=== PATIENT | female | born 1960 | race Two or more races ===

== ENCOUNTER → 2016-07-29 | Outpatient (CLI) | payer MEDICAID ==
[~2016-07-29] MED LIST: IOPAMIDOL (ISOVUE-300) 100 ML BTL IV ONE
[2016-07-29 11:28] LABS: CREATININE 0.5 mg/dL (0.6-1.0); GLOMERULAR FILTRATION RATE > 60
== END ==
LOC: FIMAGING 10:42
PROVIDERS: ATTEND Family Medicine
DX: R10.12 Left upper quadrant pain (principal)
CPT/HCPCS: Q9967

== ENCOUNTER → 2016-08-14 | Outpatient (CLI) | payer MEDICAID | LOC: FIMAGING 11:00 | PROVIDERS: ATTEND Family Medicine | DX: M79.601 Pain in right arm (principal); M79.89 Other specified soft tissue disorders ==

== ENCOUNTER 2017-04-05 14:11 | Emergency (ER) | payer MEDICAID ==
[2017-04-05 14:19] VITALS: RESP 16
--- NOTE | 2017-04-05 14:28 | EDPHY ---
H & P Time Seen by Provider: 04/05/17 14:22 HPI/ROS: CHIEF COMPLAINT: Left flank pain HISTORY OF PRESENT ILLNESS: The patient is a 57-year-old female with history of diabetes presenting with left flank pain. The patient developed left sided flank pain two weeks ago. Over the past two days her pain has become severe in nature. Her pain is worse with movement and radiates into her left groin. She states " it feels like a punching" sensation. She has associated dysuria and urinary frequency. She reports nausea, no emesis. She took two tablets of oxycodone last night and this morning and found no relief. REVIEW OF SYSTEMS: A comprehensive 10 point review of systems is otherwise negative aside from elements mentioned in the history of present illness. Past Medical/Surgical History: Diabetes, Hypertension Social History: . Nonsmoker. No alcohol use. No drug use. Smoking Status: Former smoker Physical Exam: General Appearance: Appears in pain, tearful Eyes: Pupils equal and round, no conjunctival pallor or injection ENT, Mouth: Mucous membranes moist Neck: Normal inspection Respiratory: Lungs are clear to auscultation Cardiovascular: Regular rate and rhythm Gastrointestinal: Abdomen is soft, LUQ tenderness Back: Negative straight leg raise. Tenderness to light palpation over left flank area Neurological: A&O, nonfocal, normal gait Skin: Warm and dry, no rash Extremities: Nontender, no pedal edema Psychiatric: Mood and affect normal Constitutional: Initial Vital Signs Temperature (C) 36.4 C 04/05/17 14:15 Heart Rate 63 04/05/17 14:15 Respiratory Rate 16 04/05/17 14:15 Blood Pressure 150/64 H 04/05/17 14:15 O2 Sat (%) 96 04/05/17 14:15 O2 Delivery Mode Room Air Allergies/Adverse Reactions: No Known Allergies Allergy (Verified 07/18/15 20:46) Home Medications: Medication Instructions Recorded Losartan Potassium [Cozaar] 100 mg PO DAILY 03/15/15 Metformin HCl [Metformin 1000 mg] 1,000 mg PO BID 03/15/15 Acetaminophen [Tylenol 325mg (*)] 650 mg PO Q4 PRN #0 tab 07/19/15 Aspirin EC [Aspirin EC 81 mg (*)] 81 mg PO DAILY #0 tab 07/19/15 Insulin Aspart [novoLOG] 16 unit SQ BID 07/19/15 Insulin Detemir [Levemir Flextouch] 54 unit SQ BID 07/19/15 Metoprolol Tartrate [Lopressor 50 50 mg PO BID 07/19/15 mg (*)] Cefdinir [Omnicef (*)] 300 mg PO BID #20 cap 04/05/17 oxyCODONE/APAP 5/325 [Percocet 1 - 2 tab PO Q4 PRN #15 tab 04/05/17 5/325 (*)] Medical Decision Making - Diagnostics Imaging Results: CT abd/pelvis read by the radiologist: unremarkable, no ureteral stone or hydronephrosis. Imaging: Discussed imaging studies w/ slumber room attendant Radiologist ED Course/Re-evaluation: Patient presents with severe left flank pain radiating to left flank. The patient appears in pain, she has difficulty moving secondary to pain. Unclear if this is secondary to musculoskeletal pain, kidney stone or pyelonephritis. IV was established, the patient received Benadryl, Reglan and Fluids. She was given Ketamine nasally. I ordered CT abdomen/pelvis to look for stone or other cause of pain. Lab work including BMP, CBC, and UA are pending. Results discussed with the patient. UTI and likely musculoskeletal etiology of pain. She feels much better after ketamine especially, though the pain is starting to return. Toradol 15 mg IV given. Lab work is unremarkable, WBC is normal. Urinalysis is positive for blood and leukocyte esterase. Plan to treat UTI with Omnicef. CT abdomen/pelvis is negative for stone or other acute findings. Patient was instructed to take Ibuprofen for pain and oxycodone for severe pain. Differential Diagnosis: Differential diagnosis includes though it is not limited to appendicitis, cholecystitis, diverticulitis, pyelonephritis, bowel perforation, small bowel obstruction. - Data Points Laboratory Results: Laboratory Results 04/05/17 14:41 04/05/17 14:41 Microbiology Results: MICROBIOLOGY 04/05/17 15:30 Urine,Clean Catch Urine Culture - Preliminary Gram Neg Rods 2 Or More Types Three [place] Types Medications Given: Discontinued Medications Diphenhydramine HCl (Benadryl Injection) 25 mg IVP EDNOW ONE Stop: 04/05/17 14:33 Last Admin: 04/05/17 15:02 Dose: 25 mg Sodium Chloride (Ns) 1,000 mls @ 0 mls/hr IV EDNOW ONE; Wide Open PRN Reason: Protocol Stop: 04/05/17 14:32 Last Admin: 04/05/17 15:02 Dose: 1,000 mls Ketamine HCl (Ketamine) 50 mg NASAL EDNOW ONE Stop: 04/05/17 14:33 Last Admin: 04/05/17 15:02 Dose: 50 mg Ketorolac Tromethamine (Toradol) 15 mg IVP EDNOW ONE Stop: 04/05/17 16:59 Last Admin: 04/05/17 17:18 Dose: 15 mg Metoclopramide HCl (Reglan Injection) 10 mg IVP EDNOW ONE Stop: 04/05/17 14:33 Last Admin: 04/05/17 15:02 Dose: 10 mg Departure - Departure Disposition: Home, Routine, Self-Care Clinical Impression: Urinary tract infection Qualifiers: Urinary tract infection type: acute cystitis Hematuria presence: without hematuria Qualified Code(s): N30.00 - Acute cystitis without hematuria Condition: Good Instructions: Urinary Tract Infection in Women (ED) Additional Instructions: I recommend 600mg Ibuprofen every 6 to 8 hours as needed for pain. Take Oxycodone as directed for severe pain. Take the full course of Omnicef. Drink plenty of fluids. Referrals: William Starks MD [Primary Care Provider] - 2-3 days without fail Prescriptions: Cefdinir [Omnicef (*)] 300 mg PO BID #20 cap oxyCODONE/APAP 5/325 [Percocet 5/325 (*)] 1 - 2 tab PO Q4 PRN #15 tab PRN Reason: pain Report Scribed for: Mamie Haas Report Scribed by: Alix West Date of Report: 04/05/17 Time of Report: 14:24 Physician Review and Approval Statement: 04/05/17 14:24 Portions of this note were transcribed by a medical referral coordinator. I personally performed the history, physical exam, and medical decision-making; and confirmed the accuracy of the information in the transcribed note.
[2017-04-05] MEDS ORDERED: NS 1,000 ML IV ONE (14:31)
[2017-04-05] MEDS ORDERED: METOCLOPRAMIDE 10 MG/2 ML VIAL IVP ONE (14:32)
[2017-04-05] MEDS ORDERED: KETAMINE 500 MG/10 ML VIAL NASAL ONE (14:32)
[2017-04-05 15:01] LABS: % IMMATURE GRANULYOCYTES 0.7 % (0.0-1.1); ABSOLUTE IMMATURE GRANULOCYTES 0.04 10^3/uL (0.00-0.10); ADD DIFF? NO; ADD MORPH? NO; ADD SCAN? NO; ATYPICAL LYMPHOCYTE FLAG 0 (0-99); FRAGMENT RBC FLAG 0 (0-99); HEMATOCRIT 37.7 % (38.0-47.0); HEMOGLOBIN 13.2 g/dL (12.6-16.3); LEFT SHIFT FLG 0 (0-99); LIPEMIA HEMOLYSIS FLAG 90 (0-99); MEAN CELL HEMOGLOBIN 30.4 pg (27.9-34.1); MEAN CELL VOLUME 86.9 fL (81.5-99.8); MEAN PLATELET VOLUME 10.2 fL (8.7-11.7); PLATELET CLUMPS FLAG 0 (0-99); PLATELET COUNT 187 10^3/uL (150-400); RED BLOOD CELL COUNT 4.34 10^6/uL (4.18-5.33); RED CELL DISTRIBUTION WIDTH 13.2 % (11.5-15.2)
[2017-04-05 15:32] LABS: ANION GAP 14 mEq/L (8-16); CALCIUM 8.7 mg/dL (8.5-10.4); CARBON DIOXIDE 21 mEq/l (22-31); CHLORIDE 103 mEq/L (97-110); CREATININE 0.6 mg/dL (0.6-1.0); GLOMERULAR FILTRATION RATE > 60; GLUCOSE 128 mg/dL (70-100); POTASSIUM 4.1 mEq/L (3.5-5.2); SODIUM 138 mEq/L (134-144)
[2017-04-05 15:38] VITALS: PULSE 65
[2017-04-05 16:01] LABS: COLOR YELLOW; LEUKOCYTE ESTERASE,URINE 2+ (NEGATIVE); NITRITE,URINE NEGATIVE (NEGATIVE)
[2017-04-05 16:11] LABS: BACTERIA 1+ /hpf (NONE SEEN); MUCUS TRACE /lpf (NONE-1+)
[2017-04-05] MEDS ORDERED: KETOROLAC 15 MG/1 ML SDV IVP ONE (16:58)
[2017-04-05 17:24] VITALS: BP 118/78; TEMP 96.8; O2SAT 94
== END 2017-04-05 17:38 | disposition home or self-care (01) ==
DX: N30.00 Acute cystitis without hematuria (principal); B96.89 Other specified bacterial agents as the cause of diseases classified elsewhere; E11.9 Type 2 diabetes mellitus without complications; I10 Essential (primary) hypertension; E86.9 Volume depletion, unspecified; Z87.891 Personal history of nicotine dependence; Z79.4 Long term (current) use of insulin; Z79.84 Long term (current) use of oral hypoglycemic drugs
CPT/HCPCS: 96374; J1200; J1885; J2765

== ENCOUNTER 2017-06-10 08:29 | Emergency (ER) | payer MEDICAID ==
[2017-06-10 08:34] VITALS: O2SAT 94
--- NOTE | 2017-06-10 08:37 | EDPHY ---
H & P Time Seen by Provider: 06/10/17 08:36 HPI/ROS: CHIEF COMPLAINT: Cough and body aches HISTORY OF PRESENT ILLNESS: Patient was seen 3 weeks ago with similar symptoms by her primary care provider and diagnosed with bronchitis, started on a bronchodilator inhaler and cough medication and felt better. She presents with 2 days now of recurrent symptoms with cough body aches headache and increasing the frequency. REVIEW OF SYSTEMS: Eye: no change in vision ENT: Head congestion and runny nose Cardiac: Chest pain only with coughing Pulmonary: Coughing nonproductive with mild shortness of breath Abdomen: no vomiting, diarrhea, abdominal pain Musculoskeletal: Diffuse myalgias Skin: no rash Neuro: no headache Constitutional: no fever : Increasing urinary frequency without dysuria or hematuria A comprehensive 10 point review of systems is otherwise negative aside from elements mentioned in the history of present illness. PAST MEDICAL HISTORY: Includes diabetes, hypertension, cholecystectomy, left leg fracture, right knee arthritis. Social history: Not smoking currently General Appearance: Alert and conversant, cooperative. Eyes: No scleral icterus. ENT, Mouth: Normal mucous membranes. Normal pharynx with no trismus or erythema or exudate. Respiratory: Normal respiratory effort, very slight end-expiratory wheeze, no focal lung sounds. Cardiovascular: Regular rate and rhythm. Gastrointestinal: Abdomen is soft and non tender. Neurological: Alert, face symmetric, normal motor and sensory in extremities. Skin: Warm and dry, no rashes. Musculoskeletal: No peripheral edema. No calf tenderness. Psychiatric: Not agitated. Emergency Department course/MDM: Urinalysis, chest x-ray, fingerstick glucose. Influenza testing as she is diabetic and would qualify for Tamiflu if positive. 939: Influenza A positive. Will treat with Tamiflu given 2 days of current symptoms and history of diabetes making her higher risk. Chest x-ray negative for pneumonia. Initial oxygen saturation at triage was 94% on room air. Smoking Status: Former smoker Constitutional: Initial Vital Signs Temperature (C) 37 C 06/10/17 08:30 Heart Rate 79 06/10/17 08:30 Respiratory Rate 20 06/10/17 08:30 Blood Pressure 158/80 H 06/10/17 08:30 O2 Sat (%) 94 06/10/17 08:30 O2 Delivery Mode Room Air Allergies/Adverse Reactions: No Known Allergies Allergy (Verified 06/10/17 08:29) Home Medications: Medication Instructions Recorded Losartan Potassium [Cozaar] 100 mg PO DAILY 03/15/15 Metformin HCl [Metformin 1000 mg] 1,000 mg PO BID 03/15/15 Acetaminophen [Tylenol 325mg (*)] 650 mg PO Q4 PRN #0 tab 07/19/15 Aspirin EC [Aspirin EC 81 mg (*)] 81 mg PO DAILY #0 tab 07/19/15 Insulin Aspart [novoLOG] 16 unit SQ BID 07/19/15 Insulin Detemir [Levemir Flextouch] 54 unit SQ BID 07/19/15 Metoprolol Tartrate [Lopressor 50 50 mg PO BID 07/19/15 mg (*)] Ipratropium [Atrovent Hfa (*)] 12.9 gm IH 06/10/17 Oseltamivir Phosphate [Tamiflu] 75 mg PO BID #0 cap 06/10/17 Medical Decision Making - Diagnostics Imaging Results: Imaging Impressions Chest X-Ray 06/10/17 08:45 Impression: 1. No active cardiopulmonary disease seen. - Data Points Laboratory Results: 06/10/17 06/10/17 08:45 08:41 POC Glucose 185 mg/dL H mg/dL (70-100) Nasal Influenza A PCR FLU A DETECTED H (NEGATIVE) Nasal Influenza B PCR NEGATIVE FOR FLU B (NEGATIVE) Medications Given: Discontinued Medications Albuterol/Ipratropium (Duoneb) 3 ml IH EDNOW ONE Stop: 06/10/17 08:46 Last Admin: 06/10/17 08:51 Dose: 3 ml Point of Care Test Results: 06/10/17 08:41 POC Glucose 185 H Departure - Departure Disposition: Home, Routine, Self-Care Clinical Impression: Influenza A Condition: Good Instructions: Influenza (ED) Additional Instructions: Continue to use your inhaler as prescribed. Return for worsening cough or shortness of breathing. You are positive for influenza. Your being treated with anti flu medication, Tamiflu, because you have diabetes. Referrals: William Starks MD [Primary Care Provider] - As per Instructions Prescriptions: Oseltamivir Phosphate [Tamiflu] 75 mg PO BID #0 cap
[2017-06-10] MEDS ORDERED: IPRATROPIUM/ALBUTEROL 3 ML DEYVIAL IH ONE (08:45)
[2017-06-10] MEDS ORDERED: OSELTAMIVIR PHOSPHATE 75 MG CAP PO ONE (09:42)
[2017-06-10 10:14] VITALS: BP 153/87; PULSE 84; RESP 18; TEMP 98.2
== END 2017-06-10 10:14 | disposition home or self-care (01) ==
DX: J10.1 Influenza due to other identified influenza virus with other respiratory manifestations (principal); I10 Essential (primary) hypertension; E11.9 Type 2 diabetes mellitus without complications; Z79.4 Long term (current) use of insulin; Z79.82 Long term (current) use of aspirin; Z87.891 Personal history of nicotine dependence

== ENCOUNTER 2017-09-04 10:49 | Inpatient (IN) | payer MEDICAID ==
[2017-09-04] MEDS ORDERED: ONDANSETRON 4 MG/2 ML VIAL IVP ONE (11:28)
[2017-09-04] MEDS ORDERED: NS 1,000 ML IV ONE (11:28)
[2017-09-04] MEDS ORDERED: PROMETHAZINE HCL 25 MG/ML INJ IVP ONE (11:28)
--- NOTE | 2017-09-04 11:30 | EDPHY ---
General Time Seen by Provider: 09/04/17 11:23 Narrative: CHIEF COMPLAINT: Nausea, vomiting, diarrhea HISTORY OF PRESENT ILLNESS: Patient presents of nausea vomiting diarrhea that started on Friday. She was in [place] on Friday when she ate a meal at a restaurant. She says that she felt the meal was "not right." Following day Friday, she developed diarrhea. This is a watery foul-smelling diarrhea. Described as 10 episodes per day. No bright red blood. No dark tarry stools. She then developed vomiting later that same day on Friday. Six or so episodes today. Any time she eats or drinks a thinks she vomits. She cannot tolerate liquids at this point. She also has abdominal cramping pain. No fever. No chest pain shortness of breath. No lower extremity complaints. No Urinary complaints. She has not yet been evaluated. REVIEW OF SYSTEMS: Ten systems reviewed and are negative unless otherwise noted in the HPI PRIMARY CARE PHYSICIAN: Dr. William Starks PAST MEDICAL HISTORY: Hypertension, diabetes, arthritis PAST SURGICAL HISTORY: Cholecystectomy, orthopedic surgeries SOCIAL HISTORY: Nonsmoker. Lives and works here locally. FAMILY HISTORY: Noncontributory EXAMINATION General Appearance: Alert, no distress Head: normocephalic, atraumatic Eyes: Pupils equal and round, no conjunctival pallor or injection ENT, Mouth: Mucous membranes mildly dry. Airway widely patent Neck: Normal inspection, supple, non-tender Respiratory: Lungs are clear to auscultation Cardiovascular: Regular rate and rhythm no murmur Gastrointestinal: obese Abdomen is soft and nondistended. No tympany rigidity. Mild tenderness in all quadrants. Bowel sounds are present in all quadrants. No CVA tenderness. Back: non-tender, no bony abnormalities Neurological: GCS 15. A&O, nonfocal, normal gait Skin: Warm and dry, no rash no petechiae or purpura Extremities: Nontender, no pedal edema Psychiatric: Mood and affect normal DIFFERENTIAL DIAGNOSES: Including but not limited to enteritis, gastroenteritis, gastritis, dysentery, infectious diarrhea, traveler's diarrhea, colitis, diverticulitis MDM: 11:30 a.m. Nausea, vomiting and diarrhea since Friday. Patient did travel to [place] over the weekend. She has abdominal pain but benign abdominal examination at this time. Her vital signs are within normal limits. She is in no acute distress. I have ordered IV fluid and nausea medication. Laboratory studies are pending. 1:09 p.m. Notified by laboratory and charge nurse that the potassium is critically low at 2.5. I have reviewed the lab myself and she also has a mild hypoalbuminemia and hypocalcemia. Minimal transaminitis. No abnormality of her T bili or alkaline phosphatase. She is also status post cholecystectomy. Suspect that she may have a hepatitis a viral gastroenteritis. I have re-evaluated the patient. She is receiving IV fluid resuscitation but still not tolerating p.o.. I have ordered p.o. Dose of potassium for her to attempt to take. I have also ordered peripheral IV dose. She will require admission to the hospital for this. Her abdominal pain persist but abdominal exam is benign. No leukocytosis. No fever. Vital signs stable. 1:15 p.m. Case discussed with Almaz Tanner, hospitalist. Patient will be admitted to Dr. Tayal Box. She is requesting a PCU bed. At this time I have ordered the bed, an EKG and cardiac monitoring of the patient. I re-evaluated the patient she is awake alert no acute distress. GI pathogen panel is pending 1:55 p.m. GI pathogen panel is positive for salmonella. I have notified Dr. Box. The patient remains stable in no acute distress received IV fluid. SUPERVISION: Patient was independently examined, but I discussed the case with my secondary supervising physician Dr. Xiong - History Smoking Status: Former smoker - Objective Vital Signs: Initial Vital Signs Temperature (C) 97.3 F 09/04/17 10:53 Heart Rate 84 09/04/17 10:53 Respiratory Rate 16 09/04/17 10:53 Blood Pressure 181/88 H 09/04/17 10:53 O2 Sat (%) 95 09/04/17 10:53 O2 Delivery Mode Room Air Allergies/Adverse Reactions: No Known Allergies Allergy (Verified 06/10/17 08:29) Home Medications: Medication Instructions Recorded Losartan Potassium [Cozaar] 100 mg PO DAILY 03/15/15 Metformin HCl [Metformin 1000 mg] 1,000 mg PO BIDMEAL 03/15/15 Metoprolol Tartrate [Lopressor 50 50 mg PO BID 07/19/15 mg (*)] Albuterol [Proventil Inhaler HFA 1 - 2 puffs IH DAILY PRN 09/04/17 (*)] Gabapentin [Neurontin 300 MG (*)] 300 mg PO TID 09/04/17 Ibuprofen [Motrin (*)] 800 mg PO TID PRN 09/04/17 Insulin Lispro [Humalog] 0 units SQ TID 09/04/17 Laboratory Results: Laboratory Results 09/04/17 12:39 09/04/17 12:39 09/04/17 09/04/17 09/04/17 12:39 12:39 12:39 WBC 4.75 10^3/uL 10^3/uL (3.80-9.50) RBC 4.57 10^6/uL 10^6/uL (4.18-5.33) Hgb 13.4 g/dL g/dL (12.6-16.3) Hct 38.8 % % (38.0-47.0) MCV 84.9 fL fL (81.5-99.8) MCH 29.3 pg pg (27.9-34.1) MCHC 34.5 g/dL g/dL (32.4-36.7) RDW 13.3 % % (11.5-15.2) Plt Count 150 10^3/uL 10^3/uL (150-400) MPV 10.1 fL fL (8.7-11.7) Neut % (Auto) 56.7 % % (39.3-74.2) Lymph % (Auto) 28.0 % % (15.0-45.0) Sac % (Auto) 13.5 % H % (4.5-13.0) Eos % (Auto) 0.6 % % (0.6-7.6) Baso % (Auto) 0.4 % % (0.3-1.7) Nucleat RBC Rel Count 0.0 % % (0.0-0.2) Absolute Neuts (auto) 2.69 10^3/uL 10^3/uL (1.70-6.50) Absolute Lymphs (auto) 1.33 10^3/uL 10^3/uL (1.00-3.00) Absolute Monos (auto) 0.64 10^3/uL 10^3/uL (0.30-0.80) Absolute Eos (auto) 0.03 10^3/uL 10^3/uL (0.03-0.40) Absolute Basos (auto) 0.02 10^3/uL 10^3/uL (0.02-0.10) Absolute Nucleated RBC 0.00 10^3/uL 10^3/uL (0-0.01) Immature Gran % 0.8 % % (0.0-1.1) Immature Gran # 0.04 10^3/uL 10^3/uL (0.00-0.10) Sodium 138 mEq/L mEq/L (135-145) Potassium 2.5 mEq/L L* mEq/L (3.5-5.2) Chloride 98 mEq/L mEq/L (97-110) Carbon Dioxide 28 mEq/l mEq/l (22-31) Anion Gap 12 mEq/L mEq/L (8-16) BUN 16 mg/dL mg/dL (7-23) Creatinine 0.9 mg/dL mg/dL (0.6-1.0) Estimated GFR > 60 Glucose 148 mg/dL H mg/dL (70-100) Calcium 7.9 mg/dL L mg/dL (8.5-10.4) Total Bilirubin 0.7 mg/dL mg/dL (0.1-1.4) Conjugated Bilirubin 0.3 mg/dL mg/dL (0.0-0.5) Unconjugated Bilirubin 0.4 mg/dL mg/dL (0.0-1.1) AST 51 IU/L H IU/L (14-46) ALT 59 IU/L H IU/L (9-52) Alkaline Phosphatase 92 IU/L IU/L (38-126) Total Protein 6.4 g/dL g/dL (6.3-8.2) Albumin 3.4 g/dL L g/dL (3.5-5.0) Lipase 259 IU/L IU/L (23-300) Hepatitis A IgM Ab NEGATIVE (NEGATIVE) Hep Bs Antigen NEGATIVE (NEGATIVE) Hep B Core IgM Ab NEGATIVE (NEGATIVE) Hepatitis C Antibody NEGATIVE (NEGATIVE) Microbiology Results: MICROBIOLOGY 09/04/17 11:55 Stool Gastrointestinal Tract Panel (PCR) - Final Salmonella Species Medications Given: Discontinued Medications Sodium Chloride (Ns) 1,000 mls @ 0 mls/hr IV EDNOW ONE; Wide Open PRN Reason: Protocol Stop: 09/04/17 11:29 Last Admin: 09/04/17 12:18 Dose: 1,000 mls Potassium Chloride 10 meq/ (Sodium Chloride) 100 mls @ 100 mls/hr IV Q1H MITUL Stop: 09/04/17 15:44 Last Admin: 09/04/17 14:25 Dose: 100 mls Morphine Sulfate (Morphine) 4 mg IVP EDNOW ONE Stop: 09/04/17 13:17 Last Admin: 09/04/17 13:32 Dose: 4 mg Ondansetron HCl (Zofran) 4 mg IVP EDNOW ONE Stop: 09/04/17 11:29 Last Admin: 09/04/17 12:18 Dose: 4 mg Potassium Chloride (Potassium Chloride Oral Liquid) 40 meq PO EDNOW ONE Stop: 09/04/17 13:10 Last Admin: 09/04/17 13:33 Dose: 40 meq Promethazine HCl (Phenergan) 12.5 mg IVP EDNOW ONE Stop: 09/04/17 11:29 Last Admin: 09/04/17 12:18 Dose: 12.5 mg Departure - Departure Disposition: [facility] Clinical Impression: Hypokalemia due to loss of potassium, Gastroenteritis Condition: Good
[2017-09-04 12:48] LABS: PLATELET COUNT 150 10^3/uL (150-400)
[2017-09-04] MEDS ORDERED: POTASSIUM CL 20 MEQ/15 ML UDCUP PO ONE (13:09)
[2017-09-04] MEDS ORDERED: POTASSIUM Cl (KCl) 100 ML IV ONE (13:09)
--- NOTE | 2017-09-04 13:47 | CPEKG ---
Heart Rate: 64 RR Interval: 938 P-R Interval: 168 QRSD Interval: 100 QT Interval: 432 QTC Interval: 446 P [place]: 37 QRS [place]: -20 T Wave [place]: 7 EKG Severity - ABNORMAL ECG - EKG Impression: SINUS RHYTHM EKG Impression: LEFT VENTRICULAR HYPERTROPHY Electronically Signed By: Griselda Pompa 06-Sep-2017 15:16:12
[2017-09-04 14:17] LABS: HEPATITIS B SURFACE ANTIGEN NEGATIVE (NEGATIVE)
[2017-09-04 14:22] LABS: HEPATITIS A ANTIBODY IGM (BCH) NEGATIVE (NEGATIVE); HEPATITIS B CORE AB IGM NEGATIVE (NEGATIVE)
[2017-09-04] MEDS: POTASSIUM Cl (KCl) 10 MEQ in NS 100 ML IV SCH ×2 (14:25→16:20)
[2017-09-04 14:34] LABS: HEPATITIS C ANTIBODY TOTAL NEGATIVE (NEGATIVE)
[2017-09-04] MEDS ORDERED: KETOROLAC 30 MG/1 ML SDV IVP PRN (16:51)
[2017-09-04] MEDS ORDERED: PROTOCOL POTASSIUM 1 DOSE MISC PRN (16:51)
[2017-09-04] MEDS ORDERED: traMADol 50 MG TAB PO PRN (16:51)
[2017-09-04] MEDS ORDERED: PROMETHAZINE HCL 25 MG/ML INJ IVP PRN (16:51)
[2017-09-04] MEDS ORDERED: ACETAMINOPHEN 325 MG TAB PO PRN (16:51)
[2017-09-04] MEDS ORDERED: HYDROmorphone HCL/NS 0.5 MG/ML SYR IVP PRN (16:51)
[2017-09-04] MEDS ORDERED: D50W 25 GM/50 ML VIAL IVP PRN (16:53)
--- NOTE | 2017-09-04 17:24 | GHP ---
[f rep st] HISTORY AND PHYSICAL DATE OF ADMISSION: 09/04/2017 CHIEF COMPLAINT: Diarrhea. HISTORY OF PRESENT ILLNESS: The patient is a 57-year-old female who presents with severe nausea, vom iting, and diarrhea. She was visiting [place] and ate some chitlins, which she bought from a food [place] on Friday. That evening she became extremely sick, having profuse diarrhea, which has now contin ued for the last 5 days. She is having greater than 10 stools per day. She has nausea and vomiting every time she tries to eat. There is no blood. She has severe abdominal cramping. She has had tac tile fevers, and at night she has drenching night sweats and rigors. She has had minimal p.o. intake . PAST MEDICAL HISTORY: 1. Diabetes type 2. 2. Morbid obesity. 3. Hypertension. 4. Fatty liver. PAST SURGICAL HISTORY: Cholecystectomy. MEDICATIONS: Please see computer for full detailed list. ALLERGIES: No known drug allergies. SOCIAL HISTORY: No smoking, no alcohol. She lives with her , although her is still [facility], and she had come home early because she had to work. She works at [employer]. REVIEW OF SYSTEMS: Complete review of systems obtained. Review of systems is negative on constituti onal, HEENT, GI, pulmonary, cardiovascular, , hematology, skin, musculoskeletal, endocrine and psyc h, except for positives as in HPI. FAMILY HISTORY: Reviewed, noncontributory to presenting complaint. PHYSICAL EXAMINATION: GENERAL: Well-developed, well-nourished female, in no acute distress. VITAL SIGNS: Temperature 37.2, pulse 66, blood pressure 147/78, satting 92% on room air. EYES: Normal co njunctivae. Pupils react to light. ENT: Normal ears, nose. Hearing intact. Normal teeth. Oropha rynx moist. NECK: Trachea midline. No thyromegaly. CHEST: Normal effort. LUNGS: Clear to auscu ltation bilaterally. CARDIOVASCULAR: Regular rhythm. No murmur. No lower extremity edema. ABDOME N: Soft, nontender. No hepatosplenomegaly. SKIN: Warm, dry, intact. No rash. MUSCULOSKELETAL: No cyanosis or clubbing. Strength 5/5 upper and lower extremities. NEUROLOGIC: Cranial nerves inta ct. Normal sensation to light touch. PSYCH: Alert and oriented x3. Normal mood and affect. Regina l judgment. Normal memory. LABORATORY DATA: White count 4.75, hematocrit 38.8, platelets 150. Sodium 138, potassium 2.5, chlor nichol 98, bicarb 28, BUN 16, creatinine 0.9, glucose 140, AST 51, ALT 59. UA shows 5-10 white blood ce lls. EKG viewed by me, my personal interpretation is normal sinus rhythm, diffuse T-wave flattening. GI PCR panel is positive for salmonella. ASSESSMENT/PLAN: 1. Salmonella gastroenteritis. Antibiotics are indicated, given based on criteria of severe illness requiring hospitalization, greater than 10 diarrhea stools per day, age greater than 50, and presume d immunocompromised state due to diabetes and morbid obesity. We will start her on IV Levaquin and p razia for a 7-day course. Given her severe rigors at home, we will check blood cultures prior to antib iotics. 2. Hypokalemia. This will be repleted per protocol. We will also check magnesium and phosphorus. 3. Diabetes type 2. Creatinine is okay so can continue metformin. Place her on insulin sliding sca le. 4. Hypertension. Continue metoprolol and Cozaar. 5. Morbid obesity. BMI 42, with fatty liver. CODE STATUS: Full. ADMISSION STATUS: We will admit to observation. Reevaluate tomorrow on ongoing need for hospitaliza tion. DVT PROPHYLAXIS: She is high risk. We will place on subcu Lovenox. /[id number]/MODL
[2017-09-04] MEDS: NS 1,000 ML IV SCH (17:55)
[2017-09-04] MEDS: INSULIN REGULAR HUMAN 100 UNIT/ML UNIT SC SCH ×2 (18:32→21:14)
[2017-09-04] MEDS: metFORMIN HCL 500 MG TAB PO SCH (18:33)
[2017-09-04] MEDS ORDERED: POTASSIUM CL 10 MEQ TAB PO ONE (20:06)
[2017-09-04] MEDS: METOPROLOL TARTRATE 50 MG TAB PO SCH (21:13)
[2017-09-04] MEDS: GABAPENTIN 300 MG CAP PO SCH (21:13)
[2017-09-04] MEDS: ONDANSETRON 4 MG/2 ML VIAL IVP PRN (22:08)
[2017-09-04] MEDS: oxyCODONE IR 5 MG TAB PO PRN (22:13)
[2017-09-05 04:16] LABS: PLATELET COUNT 163 10^3/uL (150-400)
[2017-09-05] MEDS ORDERED: POTASSIUM CL 10 MEQ TAB PO ONE (08:16)
[2017-09-05] MEDS: INSULIN REGULAR HUMAN 100 UNIT/ML UNIT SC SCH ×4 (08:37→21:55)
[2017-09-05] MEDS: ENOXAPARIN 40 MG/0.4 ML SYR SC SCH ×2 (09:19→22:02)
[2017-09-05] MEDS: LOSARTAN POTASSIUM 50 MG TAB PO SCH (09:19)
[2017-09-05] MEDS: metFORMIN HCL 500 MG TAB PO SCH ×2 (09:19→17:36)
[2017-09-05] MEDS: GABAPENTIN 300 MG CAP PO SCH ×3 (09:20→22:02)
[2017-09-05] MEDS: METOPROLOL TARTRATE 50 MG TAB PO SCH ×2 (09:20→22:02)
[2017-09-05] MEDS: ONDANSETRON 4 MG/2 ML VIAL IVP PRN ×2 (09:22→22:02)
[2017-09-05] MEDS: oxyCODONE IR 5 MG TAB PO PRN (13:26)
--- NOTE | 2017-09-05 14:08 | ASMTCASEMG ---
Living Arrangements What is your living Answers: With Spouse arrangement? Who do you live with? Type Of Residence What kind of residence do Answers: House you live in? Discharge Plan Comments Coordination Status Comments Notes: Pts case discussed in tx rounds. CM met w/ pt and son for dispo planning. PT is recommending HC. OT is recommending home independent. Pt does not have a preference on HC agency as long as it is covered by Medicaid. Referral made to [facility]. [facility] is able to accept. CM to follow. Plan: JANEL, RN and PT Date Signed: 09/05/2017 02:08 PM Electronically Signed By:BREANN Raya
--- NOTE | 2017-09-05 15:21 | HOSPPROG ---
Hospitalist Progress Note Assessment/Plan: * Salmonella gastroenteritis -IV Levaquin indicated based on severity of illness, age > 50, diabetic * Hypokalemia - improved * DM II -metformin * Obesity BMI 33 * HTN -metoprolol, cozaar Subjective: Still with multiple BM per day. Not taking PO Objective: Vital Signs Temp Pulse Resp BP Pulse Ox 36.9 C 74 22 H 139/77 H 83 L 09/05/17 11:13 09/05/17 11:13 09/05/17 11:13 09/05/17 11:13 09/05/17 11:57 Laboratory Results 09/05/17 03:44 09/05/17 03:44 09/04/17 09/05/17 09/06/17 05:59 05:59 05:59 Intake Total 2755 350 Balance 2755 350 - Physical Exam Constitutional: no apparent distress, appears nourished, not in pain Cardiovascular: regular rate and rhythym, no murmur, rub, or gallop Respiratory: no respiratory distress, no rales or rhonchi, clear to auscultation Gastrointestinal: normoactive bowel sounds, soft, non-tender abdomen, no palpable masses Skin: no rashes or abrasions, no fluctuance, no induration Neurologic: AAOx3, sensation intact bilaterally Psychiatric: interacting appropriately, not anxious, not encephalopathic, thought process linear ICD10 Worksheet Patient Problems: Problems Problem Status Onset Gastroenteritis Acute Hypokalemia due to loss of potassium Acute Hyperglycemia Acute Urinary tract infection Acute
--- NOTE | 2017-09-05 15:56 | PDMN ---
Medical Necessity Medical necessity: Change to IP, as of 09/05/17, per MD; los >2 mn for ongoing management of Salmonella gastroenteritis; pt having multiple BMs per day & is unable to tolerate PO; admit for further monitoring, IV Levaquin & IVFs; hx diabetes & HTN; per progress note & order 09/05/17
[2017-09-05] MEDS: NS 1,000 ML IV SCH (17:37)
[2017-09-06 05:13] LABS: PLATELET COUNT 162 10^3/uL (150-400)
[2017-09-06] MEDS: INSULIN REGULAR HUMAN 100 UNIT/ML UNIT SC SCH ×4 (07:30→22:24)
[2017-09-06] MEDS: METOPROLOL TARTRATE 50 MG TAB PO SCH ×2 (09:33→22:30)
[2017-09-06] MEDS: GABAPENTIN 300 MG CAP PO SCH ×3 (09:33→22:30)
[2017-09-06] MEDS: metFORMIN HCL 500 MG TAB PO SCH (09:35)
[2017-09-06] MEDS: LOSARTAN POTASSIUM 50 MG TAB PO SCH (09:35)
[2017-09-06] MEDS: ENOXAPARIN 40 MG/0.4 ML SYR SC SCH ×2 (09:36→22:31)
[2017-09-06] MEDS ORDERED: POTASSIUM CL 10 MEQ TAB PO ONE ×2 (12:14→22:34)
--- NOTE | 2017-09-06 13:55 | HOSPPROG ---
Hospitalist Progress Note Assessment/Plan: * Salmonella gastroenteritis -IV Levaquin indicated based on severity of illness, age > 50, diabetic -change to PO Levaquin at discharge - total 7 days * Hypokalemia - improved * ARF - IVF stopped overnight -suspect she can't keep up PO to extent of loss from ongoing diarrhea -restart IVF -hold cozaar, metformin * DM II * Obesity BMI 33 * HTN -metoprolol Subjective: Still with 4 watery BM before 11:00 am, feels dizzy Objective: Vital Signs Temp Pulse Resp BP Pulse Ox 37.1 C 56 L 16 102/44 L 96 09/06/17 11:48 09/06/17 11:48 09/06/17 11:48 09/06/17 11:48 09/06/17 11:48 Laboratory Results 09/06/17 05:03 09/06/17 05:03 09/05/17 09/06/17 09/07/17 05:59 05:59 05:59 Intake Total 1950 Balance 1950 - Physical Exam Constitutional: no apparent distress, appears nourished, not in pain Cardiovascular: regular rate and rhythym, no murmur, rub, or gallop Respiratory: no respiratory distress, no rales or rhonchi, clear to auscultation Gastrointestinal: normoactive bowel sounds, soft, non-tender abdomen, no palpable masses Skin: no rashes or abrasions, no fluctuance, no induration Neurologic: AAOx3, sensation intact bilaterally Psychiatric: interacting appropriately, not anxious, not encephalopathic, thought process linear ICD10 Worksheet Patient Problems: Problems Problem Status Onset Gastroenteritis Acute Hypokalemia due to loss of potassium Acute Hyperglycemia Acute Urinary tract infection Acute
[2017-09-06] MEDS: NS 1,000 ML IV SCH ×2 (14:00→22:43)
[2017-09-07 05:30] LABS: PLATELET COUNT 166 10^3/uL (150-400)
[2017-09-07] MEDS: NS 1,000 ML IV SCH (06:11)
--- NOTE | 2017-09-07 07:39 | HOSPPROG ---
Hospitalist Progress Note Assessment/Plan: 57-y/o F PMH DM, obesity, htn, was visiting [place] and ate chitlins from a food truck. 5 days prior to admission she developed N/V, and severe diarrhea with 10 stools per day. Associated F/night sweats/rigors. * Salmonella gastroenteritis -IV Levaquin indicated based on severity of illness, age > 50, diabetic -change to PO Levaquin at discharge - total 7 days * Hypokalemia - improved * ARF - worse today at 2.8 -suspect she can't keep up PO to extent of loss from ongoing diarrhea -will obtain renal ultrasound - consider renal consult if not improved tomorrow -pt requests stopping IVF due to swelling in hands/ will reduce rate of infusion -hold cozaar, metformin * Low back pain - reproduceable along the paraspinous area in lumbar region will add Robaxin * DM II * Obesity BMI 33 * HTN -metoprolol * DVT ppx - Enox BID due to high BMI * Disposition unclear and requires ongoing inpt due to worsening renal function Subjective: Reports L sided low back pain that is painful on palpation. No diarrhea since 6 pm yesterday. Able to tolerate PO without N/V. No abdominal pain but noting bloating Objective: Vital Signs Temp Pulse Resp BP Pulse Ox 98.3 F 57 L 16 111/59 L 98 09/07/17 07:15 09/07/17 07:15 09/07/17 07:15 09/07/17 07:15 09/07/17 07:15 Laboratory Results 09/07/17 05:00 09/07/17 05:00 09/06/17 09/07/17 09/08/17 05:59 05:59 05:59 Intake Total 1950 2189 Balance 1950 2189 - Physical Exam Constitutional: no apparent distress Eyes: anicteric sclera Ears, Nose, Mouth, Throat: moist mucous membranes, hearing normal Cardiovascular: regular rate and rhythym, no murmur, rub, or gallop Respiratory: no respiratory distress, no rales or rhonchi Gastrointestinal: normoactive bowel sounds, soft, non-tender abdomen Skin: warm, normal color Musculoskeletal: other (pain on palpation of R lumbar region) Neurologic: AAOx3 Psychiatric: interacting appropriately ICD10 Worksheet Patient Problems: Problems Problem Status Onset Gastroenteritis Acute Hypokalemia due to loss of potassium Acute Hyperglycemia Acute Urinary tract infection Acute
[2017-09-07] MEDS: INSULIN REGULAR HUMAN 100 UNIT/ML UNIT SC SCH ×4 (08:02→21:47)
[2017-09-07] MEDS: METOPROLOL TARTRATE 50 MG TAB PO SCH ×2 (09:17→21:45)
[2017-09-07] MEDS: GABAPENTIN 300 MG CAP PO SCH ×3 (09:17→21:47)
[2017-09-07] MEDS: ENOXAPARIN 40 MG/0.4 ML SYR SC SCH ×2 (09:17→21:44)
[2017-09-07] MEDS: METHOCARBAMOL 750 MG TAB PO SCH ×2 (16:44→21:45)
[2017-09-08] MEDS: INSULIN REGULAR HUMAN 100 UNIT/ML UNIT SC SCH ×4 (08:24→20:39)
[2017-09-08] MEDS: GABAPENTIN 300 MG CAP PO SCH (09:56)
[2017-09-08] MEDS: METHOCARBAMOL 750 MG TAB PO SCH ×4 (09:56→20:16)
[2017-09-08] MEDS: METOPROLOL TARTRATE 50 MG TAB PO SCH (09:56)
--- NOTE | 2017-09-08 10:19 | HOSPPROG ---
Hospitalist Progress Note Assessment/Plan: 57-y/o F PMH DM, obesity, htn, was visiting [place] and ate chitlins from a food truck. 5 days prior to admission she developed N/V, and severe diarrhea with 10 stools per day. Associated F/night sweats/rigors. Today is my first encounter with the patient,chart reviewed. * Salmonella gastroenteritis -IV Levaquin indicated based on severity of illness, age > 50, diabetic -change to PO Levaquin at discharge - total 7 days * Hypokalemia - improved * metabolic acidosis -resumed fluids * ARF - worse today at 2.9 -will obtain a renal consult -resumed normal saline -hold Cozaar, metformin, lovenox -urine studies stable * Low back pain - no c/o this today will add Robaxin * DM II * Obesity BMI 33 * HTN -metoprolol * DVT ppx - Enox held due to the above, will encourage mobilizatioon *Plan: nephrology to see, appreciate their help Subjective: Julia is feeling well today. Diarrhea has subsided. Objective: Vital Signs Temp Pulse Resp BP Pulse Ox 37.1 C 52 L 18 137/79 H 99 09/08/17 07:44 09/08/17 07:44 09/08/17 07:44 09/08/17 07:44 09/08/17 07:44 Laboratory Results 09/07/17 05:00 09/08/17 05:00 09/07/17 09/08/17 09/09/17 05:59 05:59 05:59 Intake Total 2189 400 300 Output Total 1000 600 Balance 2189 -600 -300 - Physical Exam Constitutional: no apparent distress, obese Eyes: PERRL Ears, Nose, Mouth, Throat: hearing normal Cardiovascular: regular rate and rhythym Respiratory: no respiratory distress Gastrointestinal: normoactive bowel sounds Skin: warm, normal color Neurologic: AAOx3 Psychiatric: interacting appropriately ICD10 Worksheet Patient Problems: Problems Problem Status Onset Gastroenteritis Acute Hypokalemia due to loss of potassium Acute Hyperglycemia Acute Urinary tract infection Acute
[2017-09-08] MEDS: NS 1,000 ML IV SCH (12:37)
[2017-09-08] MEDS: oxyCODONE IR 5 MG TAB PO PRN ×2 (12:52→20:14)
[2017-09-08] MEDS ORDERED: GABAPENTIN 300 MG CAP PO SCH (12:52)
--- NOTE | 2017-09-08 13:32 | ASMTCMCOM ---
CM Note CM Note Notes: CM spoke w/ Jacquelin RN regarding d/c POC. Th e plan remains the same. Pt will d/c with PT and RN when medically stable. CM to follow. Plan: [facility], PT and RN Date Signed: 09/08/2017 01:32 PM Electronically Signed By:BREANN Raya
--- NOTE | 2017-09-08 13:58 | PDCONSULT ---
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 She likely has ATN in setting of profuse diarrhea with N/V and poor po intake, Cozaar and relative hypotension for her. Her rate of rise in Cr is slowing down , up from 2.8 yesterday to 2.9, likely plateauing and will improve soon. Renal US with no concerning findings. - No need for HD. - Ok to stop IVFs. - Agree with holding Cozaar, will also hold BB for now as HR is well controlled and BP still a little low for her. - Will continue to monitor. - Avoid hypotension and nephrotoxins. - Will cut down gabapentin dosage to avoid toxicity in setting of MAURICE. HTN: BP running on low side for her, will stop meds in setting of MAURICE and monitor. Metabolic acidosis: in setting of MAURICE and perhaps bicarb losses from diarrhea. Will monitor for now. Hyperphosphatemia: Phos 4.9 in setting of MAURICE, no need for phos binder, will monitor for now. Thank you for the interesting consult. Nephrology will continue to follow, please call if you have any additional questions or concerns. H & P Stated Complaint: n/v/d x 5 days Time Seen by Provider: 09/05/17 03:15 HPI/ROS: HPI: Ms. Godinez is a 57 yo F with h/o HTN, DM and morbid obesity who presented on with complaints of diarrhea. Pt states that the weekend prior she was visiting [place] and ate from a food truck. That evening she became sick, started to have profuse diarrhea which continued for the next 5 days, prompting her to come to ER. She had been having N/V every time she needed to eat. She was having more than 10 stools daily, no hematochezia, and also had bene having abdominal cramping. She was also having rigors and sweats at home. She was found to have Salmonella gastroenteritis. Her Cr on presentation was 0.9, baseline around 0.6. She was started on abx, diarrhea has now improved. However, Cr had been uptrending, up to 2.8 yesterday and 2.9 today, prompting referral. She has been getting IVFs, Cozaar held yesterday. Pt states that her BP usually runs high at home, around 160s systolic, here has been in 100s- 120s in the past couple days. Pt states that she is starting to get swollen from the IVFs and starting to feel a little short of breath, particularly with exertion. She also complains of some pain in her L leg. She has only had 2 BMs today so far. She states she is still urinating normally, no hematuria or dysuria. ROS: positive per HPI, rest of 10-point ROS negative - Personal History Current Tetanus Diphtheria and Acellular Pertussis (TDAP): No Tetanus Vaccine Date: 2012 - Medical/Surgical History Hx Asthma: No Hx Chronic Respiratory Disease: No Hx Diabetes: Yes Hx Cardiac Disease: Yes Hx Renal Disease: No Hx Cirrhosis: No Hx Alcoholism: No Hx HIV/AIDS: No Hx Splenectomy or Spleen Trauma: No Other PMH: dm type 2, htn. gallbladder out. ovarian cyst. Left leg fx. arthritis right knee with steriod injections,. hx of flu. - Family History Significant Family History: No pertinent family hx - Social History Smoking Status: Former smoker - Physical Exam Exam: General: alert and oriented, no acute distress Eyes: EOMI, PERRL OP: Clear, MMM Neck: supple, no thyromegaly CV: RRR, +2/4 radial and dorsalis pedis pulses, +trace edema all extremities Resp: CTA bilat but diminished breath sounds at bases, nonlabored respirations on RA Abd: Soft, NT/ND Neuro: CN II-XII Grossly intact, no asterixis Psych: cooperative, appropriate mood and affect Skin: C/D/I, no rash Constitutional: Initial Vital Signs Temperature (C) 36.3 C 09/04/17 10:53 Heart Rate 84 09/04/17 10:53 Respiratory Rate 16 09/04/17 10:53 Blood Pressure 181/88 H 09/04/17 10:53 O2 Sat (%) 95 09/04/17 10:53 O2 Delivery Mode Room Air O2 (L/minute) 1 Allergies/Adverse Reactions: No Known Allergies Allergy (Verified 06/10/17 08:29) Home Medications: Medication Instructions Recorded Losartan Potassium [Cozaar] 100 mg PO DAILY 03/15/15 Metformin HCl [Metformin 1000 mg] 1,000 mg PO BIDMEAL 03/15/15 Metoprolol Tartrate [Lopressor 50 50 mg PO BID 07/19/15 mg (*)] Albuterol [Proventil Inhaler HFA 1 - 2 puffs IH DAILY PRN 09/04/17 (*)] Gabapentin [Neurontin 300 MG (*)] 300 mg PO TID 09/04/17 Ibuprofen [Motrin (*)] 800 mg PO TID PRN 09/04/17 Insulin Lispro [Humalog] 0 units SQ TID 09/04/17 Lab and Imaging 09/07/17 05:00 09/08/17 05:00 WBC 5.92 10^3/uL (3.80-9.50) 09/07/17 05:00 RBC 3.69 10^6/uL (4.18-5.33) L 09/07/17 05:00 Hgb 10.9 g/dL (12.6-16.3) L 09/07/17 05:00 Hct 32.3 % (38.0-47.0) L 09/07/17 05:00 MCV 87.5 fL (81.5-99.8) 09/07/17 05:00 MCH 29.5 pg (27.9-34.1) 09/07/17 05:00 MCHC 33.7 g/dL (32.4-36.7) 09/07/17 05:00 RDW 14.0 % (11.5-15.2) 09/07/17 05:00 Plt Count 166 10^3/uL (150-400) 09/07/17 05:00 MPV 10.2 fL (8.7-11.7) 09/07/17 05:00 Neut % (Auto) 54.1 % (39.3-74.2) 09/07/17 05:00 Lymph % (Auto) 33.8 % (15.0-45.0) 09/07/17 05:00 [place] % (Auto) 8.8 % (4.5-13.0) 09/07/17 05:00 Eos % (Auto) 2.0 % (0.6-7.6) 09/07/17 05:00 Baso % (Auto) 0.3 % (0.3-1.7) 09/07/17 05:00 Nucleat RBC Rel Count 0.0 % (0.0-0.2) 09/07/17 05:00 Absolute Neuts (auto) 3.20 10^3/uL (1.70-6.50) 09/07/17 05:00 Absolute Lymphs (auto) 2.00 10^3/uL (1.00-3.00) 09/07/17 05:00 Absolute Monos (auto) 0.52 10^3/uL (0.30-0.80) 09/07/17 05:00 Absolute Eos (auto) 0.12 10^3/uL (0.03-0.40) 09/07/17 05:00 Absolute Basos (auto) 0.02 10^3/uL (0.02-0.10) 09/07/17 05:00 Absolute Nucleated RBC 0.00 10^3/uL (0-0.01) 09/07/17 05:00 Immature Gran % 1.0 % (0.0-1.1) 09/07/17 05:00 Immature Gran # 0.06 10^3/uL (0.00-0.10) 09/07/17 05:00 Sodium 141 mEq/L (135-145) 09/08/17 05:00 Potassium 4.3 mEq/L (3.5-5.2) 09/08/17 05:00 Chloride 113 mEq/L (97-110) H 09/08/17 05:00 Carbon Dioxide 18 mEq/l (22-31) L 09/08/17 05:00 Anion Gap 10 mEq/L (8-16) 09/08/17 05:00 BUN 32 mg/dL (7-23) H 09/08/17 05:00 Creatinine 2.9 mg/dL (0.6-1.0) H 09/08/17 05:00 Estimated GFR 17 09/08/17 05:00 Glucose 134 mg/dL (70-100) H 09/08/17 05:00 POC Glucose 156 mg/dL (70-100) H 09/08/17 12:46 Calcium 8.2 mg/dL (8.5-10.4) L 09/08/17 05:00 Phosphorus 4.9 mg/dL (2.5-4.5) H 09/08/17 05:00 Magnesium 1.7 mg/dL (1.6-2.3) 09/08/17 05:00 Total Bilirubin 0.7 mg/dL (0.1-1.4) 09/04/17 12:39 Conjugated Bilirubin 0.3 mg/dL (0.0-0.5) 09/04/17 12:39 Unconjugated Bilirubin 0.4 mg/dL (0.0-1.1) 09/04/17 12:39 AST 51 IU/L (14-46) H 09/04/17 12:39 ALT 59 IU/L (9-52) H 09/04/17 12:39 Alkaline Phosphatase 92 IU/L (38-126) 09/04/17 12:39 Total Protein 6.4 g/dL (6.3-8.2) 09/04/17 12:39 Albumin 3.4 g/dL (3.5-5.0) L 09/04/17 12:39 Lipase 259 IU/L (23-300) 09/04/17 12:39 Urine Color YELLOW 09/04/17 13:41 Urine Appearance CLEAR 09/04/17 13:41 Urine pH 6.0 (5.0-7.5) 09/04/17 13:41 Ur Specific [place] 1.006 (1.002-1.030) 09/04/17 13:41 Urine Protein NEGATIVE (NEGATIVE) 09/04/17 13:41 Urine Ketones NEGATIVE (NEGATIVE) 09/04/17 13:41 Urine Blood NEGATIVE (NEGATIVE) 09/04/17 13:41 Urine Nitrate NEGATIVE (NEGATIVE) 09/04/17 13:41 Urine Bilirubin NEGATIVE (NEGATIVE) 09/04/17 13:41 Urine Urobilinogen NEGATIVE EU (0.2-1.0) 09/04/17 13:41 Ur Leukocyte Esterase NEGATIVE (NEGATIVE) 09/04/17 13:41 Urine RBC 1-3 /hpf (0-3) 09/04/17 13:41 Urine WBC 5-10 /hpf (0-3) H 09/04/17 13:41 Ur Epithelial Cells TRACE /lpf (NONE-1+) 09/04/17 13:41 Urine Bacteria TRACE /hpf (NONE SEEN) H 09/04/17 13:41 Ur Random Creatinine 42.7 mg/dL 09/08/17 07:35 Ur Random Sodium 51 mEq/L (30-90) 09/08/17 07:35 Urine Glucose NEGATIVE (NEGATIVE) 09/04/17 13:41 Hepatitis A IgM Ab NEGATIVE (NEGATIVE) 09/04/17 12:39 Hep Bs Antigen NEGATIVE (NEGATIVE) 09/04/17 12:39 Hep B Core IgM Ab NEGATIVE (NEGATIVE) 09/04/17 12:39 Hepatitis C Antibody NEGATIVE (NEGATIVE) 09/04/17 12:39
[2017-09-08] MEDS: GABAPENTIN 100 MG CAP PO SCH ×2 (17:42→20:15)
[2017-09-08] MEDS: ONDANSETRON 4 MG/2 ML VIAL IVP PRN (20:27)
[2017-09-08] MEDS ORDERED: CALCIUM CARBONATE 500 MG CHEWABLE TAB PO ONE (23:07)
[2017-09-09] MEDS: INSULIN REGULAR HUMAN 100 UNIT/ML UNIT SC SCH ×2 (08:14→12:24)
[2017-09-09 08:19] VITALS: BP 147/89; PULSE 67; RESP 18; TEMP 98.2; O2SAT 97
[2017-09-09] MEDS ORDERED: ENOXAPARIN 40 MG/0.4 ML SYR SC SCH (09:00)
[2017-09-09] MEDS: METHOCARBAMOL 750 MG TAB PO SCH (09:54)
[2017-09-09] MEDS: GABAPENTIN 100 MG CAP PO SCH (09:54)
--- NOTE | 2017-09-09 11:47 | HOSPPROG ---
Hospitalist Progress Note Assessment/Plan: 57-y/o F PMH DM, obesity, htn, was visiting [place] and ate chitlins from a food truck. 5 days prior to admission she developed N/V, and severe diarrhea with 10 stools per day. Associated F/night sweats/rigors. Today is my first encounter with the patient,chart reviewed. * Salmonella gastroenteritis -IV Levaquin indicated based on severity of illness, age > 50, diabetic -change to PO Levaquin QOD due to kidney function * Hypokalemia - improved * metabolic acidosis -better today * ARF - secondary to ATN -appreciate nephrology -hold Cozaar, metformin, lovenox -urine studies stable *hyperphosphatemia phos increase today * Low back pain - no c/o this today will add Robaxin * DM II * Obesity BMI 33 * HTN -metoprolol * DVT ppx - Enox held due to the above, will encourage mobilization *Plan: reviewed her care with Dr Beyer, will dc today, hold Cozaar and metformin. Homecare to f/u with her. In addition, CM will [facility] or close f/u. Subjective: Julia is tired, has no complaints. Objective: Vital Signs Temp Pulse Resp BP Pulse Ox 36.8 C 67 18 147/89 H 97 09/09/17 08:00 09/09/17 08:00 09/09/17 08:00 09/09/17 08:00 09/09/17 08:00 Laboratory Results 09/07/17 05:00 09/09/17 04:41 09/08/17 09/09/17 09/10/17 05:59 05:59 05:59 Intake Total 400 1975 Output Total 1000 2550 Balance -600 -575 - Physical Exam Constitutional: chronically ill appearing, obese Eyes: PERRL Ears, Nose, Mouth, Throat: hearing normal Respiratory: no respiratory distress Skin: warm Musculoskeletal: generalized weakness Neurologic: AAOx3 Psychiatric: interacting appropriately ICD10 Worksheet Patient Problems: Problems Problem Status Onset Gastroenteritis Acute Hypokalemia due to loss of potassium Acute Hyperglycemia Acute Urinary tract infection Acute
[2017-09-09] MEDS ORDERED: ONDANSETRON DISINTEGRATING 4 MG TAB PO PRN (12:11)
--- NOTE | 2017-09-09 13:08 | SOAPPROG ---
SOAP Progress Note Assessment/Plan: Assessment: 1. arf: ischemic atn from vol depletion/hypotension/arb. Now resolving with excellent uo and decreasing creat. I don't think she needs add'l ivf. Anticipate ongoing recovery from this point and given normal creat 4 days ago I don't feel she needs outpt renal f/u unless she fails to return to prev b/l. Would cont to hold arb until back to b/l unless htn uncontrolled without it. Recommend repeat labs late this week or early next week to monitor recovery. From purely renal standpoint, could d/c home if otherwise stable medically. 2. Diarrhea: resolved. 3. htn: bp better off meds, ideally would cont to hold arb as above until creat back to b/l unless needed for bp control. Would tolerate mild htn in short term. Plan: 09/09/17 13:03 Subjective: Feeling better than on admit but relatively poorly overall. Diarrhea resolved. Had some L hip pain yesterday that is improving. Objective: Vital Signs Temp Pulse Resp BP Pulse Ox 36.8 C 67 18 147/89 H 97 09/09/17 08:00 09/09/17 08:00 09/09/17 08:00 09/09/17 08:00 09/09/17 08:00 Laboratory Results 09/07/17 05:00 09/09/17 04:41 09/08/17 09/09/17 09/10/17 05:59 05:59 05:59 Intake Total 400 1975 Output Total 1000 2550 Balance -600 -575 Physical Exam - Physical Exam General Appearance: no apparent distress Respiratory: lungs clear (anteriorly) Cardiac/Chest: regular rate, rhythm Abdomen: non-tender, other (obese) Extremities: pedal edema (trace) ICD10 Worksheet Patient Problems: Problems Problem Status Onset Gastroenteritis Acute Hypokalemia due to loss of potassium Acute Hyperglycemia Acute Urinary tract infection Acute
--- NOTE | 2017-09-09 14:14 | PDIAF ---
- Diagnosis Diagnosis: salmonella gastroenteritis, acute renal failure Code Status: Full Code - Medication Management Discharge Medications: Medications to Continue on Transfer Metoprolol Tartrate [Lopressor 50 mg (*)] 50 mg PO BID 07/19/15 [Last Taken ] Albuterol [Proventil Inhaler HFA (*)] 1 - 2 puffs IH DAILY PRN 09/04/17 [Last Taken Unknown] Insulin Lispro [Humalog] 0 units SQ TID 09/04/17 [Last Taken 09/03/17 22:00 20 units] Gabapentin [Neurontin 100 MG (*)] 100 mg PO TID #21 cap 09/09/17 [Last Taken Unknown] Discharge Medications: Refer to the Discharge Home Medication list for PRN reason. - Orders Services needed: Home Care, Registered Nurse, Physical Therapy Home Care Face to Face: I certify that this patient was under my care and that I had the required [id number] encounter meeting the encounter requirements on the discharge day. My findings support the fact that the patient is homebound as defined in Home Care Face to Face Continued: CMS Chapter 7 Medicare Benefits Manual 30.1.1 , The condition of the patient is such that there exists a normal inability to leave home and consequently, leaving home would require a considerable and taxing effort. Isolation Type: None Diet Recommendation: ADA 2000 consistent carb Diet Texture: Regular Texture Diet Additional: hodl metformin, losartan until you get a repeat chemistry panel. Do not take NSAIDS. A script was sent to [facility] for you to be on a lower dose of gabapentin. This needs to be lower for now until your kidney function improves. - Labs/Radiology BMP Date: 09/12/15 - Follow Up Care Current Providers and Referrals: William Starks MD [Primary Care Provider] - 09/11/17 10:40 am (Please check in at 10:20AM check in, bring co pay, photo ID and insurance card.)
--- NOTE | 2017-09-09 15:40 | ASDISCHSUM ---
Discharge Information Plan Status:Home with Home Health Medically Cleared to Leave:09/09/2017 Discharge Date:09/09/2017 03:32 PM CM D/C Disposition: ADT D/C Disposition:Home, Routine, Self-Care Projected Discharge Date:09/09/2017 11:00 AM Transportation at D/C: Discharge Delay Reason: Follow-Up Date:09/09/2017 11:00 AM Discharge Slot: Final Diagnosis: Placement Information Referral Type:*Home Health Care Services Referral ID:[id number] Provider Name:[facility] Address 1:[address] Address 2: City:[place] Selection Factors: State:[place] Patient Contact Information Contact Name:TONY Relationship: Address:[facility] [address] [place] City:[place] Alternate Phone: State/Zip Code:[place] [address] Email: Financial Information Financial Class:Medicaid Primary Plan Desc:[employer] Primary Plan Number:[id number] Secondary Plan Desc: Secondary Plan Number: Assessment Information [facility] Initial CM Assessment Living Arrangements What is your living Answers: With Spouse arrangement? Who do you live with? Type Of Residence What kind of residence do Answers: House you live in? Discharge Plan Comments Coordination Status Comments Notes: Pts case discussed in tx rounds. CM met w/ pt and son for dispo planning. PT is recommending HC. OT is recommending home independent. Pt does not have a preference on HC agency as long as it is covered by Medicaid. Referral made to [facility]. [facility] is able to accept. CM to follow. Plan: JANEL, RN and PT Date Signed: 09/05/2017 02:08 PM Electronically Signed By:BREANN Raya [facility] CM Progress Note CM Note CM Note Notes: CM spoke w/ KARIN Roper regarding d/c POC. Th e plan remains the same. Pt will d/c with PT and RN when medically stable. CM to follow. Plan: [facility], PT and RN Date Signed: 09/08/2017 01:32 PM Electronically Signed By:BREANN Raya Case Management Discharge Plan Note Case Management Discharge Discharge Order Complete? Answers: Yes Patient to Obtain Answers: via Family Medications Transportation Arranged Answers: Family/Friends EMTALA Complete Answers: No Case Management Transport Answers: No Form Complete Faxed Final Orders Answers: Yes Agency/Facility Transfer Answers: Yes Report Printed & Faxed to Receiving Agency Family Notified Answers: No Discharge Comments Notes: CM spoke w/ Almaz Tanner NP regarding d/c POC. Pt is being discharged today. CM made pt a follow up appointment w/ her PCP, Dr. Starks. Appointment has been inputted into [facility]. Pt will d/c with [facility] services. CM notified [facility] of pts discharge. CM provided KARIN Turpin w/ phone number to call report. Pt reports that her son can pick her up this afternoon. CM available for changes. Plan: [facility], RN and PT Date Signed: 09/09/2017 01:41 PM Electronically Signed By:BREANN Raya Intervention Information
--- NOTE | 2017-09-10 02:15 | GDS ---
[f rep st] DISCHARGE SUMMARY DISCHARGE DIAGNOSES: 1. Salmonella gastroenteritis. 2. Hypokalemia. 3. Metabolic acidosis. 4. Acute renal failure. 5. Hyperphosphatemia. 6. Low back pain. 7. Diabetes type 2. 8. Obesity with a body mass index of 33. 9. Hypertension. CONSULTATION: Stefanie Nunn MD. HISTORY OF PRESENT ILLNESS: Briefly, the patient is a 57-year-old woman with a past medical history of diabetes, who presented to the emergency room with severe nausea, vomiting, and diarrhea. She was visiting the [facility]. She ate some chitlins that she bought from a food truck, then after this she became extremely sick having profuse diarrhea that had continued for 5 days. She was admitted, noted that she had Salmonella gastroenteritis. She was started on IV Levaquin and improved. During her stay, she developed some acute renal failure. This was likely secondary to prerenal azotemia in the setting of having profuse diarrhea. A renal sonogram was performed, which showed nothing acute. The study was limited due to her body habitus. She was seen and evaluated by Nephrology, and they noted that she had ATN in the setting of profuse diarrhea with poor intake. Her kidney function has slowly improved. I reviewed her care with Nephrology, who thought it would take approximately a week for this to resolve. In the meantime, she will hold multiple medications. HOSPITAL COURSE: 1. Salmonella gastroenteritis. She got full treatment with Levaquin. Her diarrhea has since subsided. 2. Hypokalemia, resolved. 3. Metabolic acidosis, better with hydration. 4. Acute renal failure. This is secondary to acute tubular necrosis. Have held her Cozaar and metformin. Will recommend holding these until her kidney function stabilizes. 5. Hyperphosphatemia. This should improve as her kidney function improves. 6. Low back pain. No complaints of this. 7. Diabetes, to hold her metformin. To continue her insulin. 8. Obesity. She has a BMI of 33. 9. Hypertension, on metoprolol. DISCHARGE CONDITION: Stable. Blood pressure is 147/89, heart rate is 67, respiratory rate is 18, O2 sats on 1 L are 97%, temperature is 36.8 Celsius. DISCHARGE MEDICATIONS: Please see the EMR. DISCHARGE INSTRUCTIONS: 1. To stay on a diabetic diet. 2. Hold gabapentin, metformin, losartan, and stop all NSAIDs until she sees Dr. Starks. I have sent a prescription for a lower dose of gabapentin to [facility] for her to take this instead of the higher dose. Once her kidney is stabilized, she can resume her home medications. 3. To get a chemistry panel this or Friday. 4. To stay well hydrated. Greater than 30 minutes discharging and coordinating her care. /[id number]/MODL MTDD
== END 2017-09-09 15:32 | disposition home or self-care (01) | DRG 372 ==
LOC: INTOOBSV 13:15 → F2W 15:19 → OBSVTOIN 09-05 15:17 → F3E 09-05 18:41
PROVIDERS: ADMIT Internal Medicine; ATTEND Internal Medicine
DX: A02.0 Salmonella enteritis (principal); E87.2 Acidosis; N17.9 Acute kidney failure, unspecified; E87.6 Hypokalemia; M54.5 Low back pain; E83.39 Other disorders of phosphorus metabolism; E11.9 Type 2 diabetes mellitus without complications; E66.9 Obesity, unspecified; I10 Essential (primary) hypertension; Z87.891 Personal history of nicotine dependence; Z68.33 Body mass index [BMI] 33.0-33.9, adult
CPT/HCPCS: 96374; 97116-GP; 97161-GP; 97165-GO; G0378; G0472; G8978-GP-CJ; G8979-GP-CI; J1650; J1815; J1885; J1956; J2270; J2405; J2550; J3480

== ENCOUNTER 2017-10-14 22:53 | Emergency (ER) | payer MEDICAID ==
[2017-10-14] MEDS ORDERED: ONDANSETRON 4 MG/2 ML VIAL IVP ONE (23:12)
[2017-10-14] MEDS ORDERED: HYOSCYAMINE SULFATE 0.125 MG TAB PO ONE (23:12)
[2017-10-14] MEDS ORDERED: MAG HYDROX/AL HYDROX/SIMETH 30 ML UDCUP PO ONE (23:12)
[2017-10-14] MEDS ORDERED: LIDOCAINE 2% VISCOUS 15 ML UDCUP PO ONE (23:12)
[2017-10-14] MEDS ORDERED: PANTOPRAZOLE SODIUM 40 MG VIAL IVP ONE (23:12)
[2017-10-14] MEDS ORDERED: NS 1,000 ML IV ONE (23:12)
[2017-10-14] MEDS ORDERED: fentaNYL 100 MCG/2 ML INJ IVP ONE (23:12)
[2017-10-14 23:30] LABS: PLATELET COUNT 192 10^3/uL (150-400)
--- NOTE | 2017-10-14 23:44 | CPEKG ---
Heart Rate: 63 RR Interval: 952 P-R Interval: 192 QRSD Interval: 92 QT Interval: 436 QTC Interval: 447 P Forest: 41 QRS Forest: 2 T Wave Forest: 15 EKG Severity - BORDERLINE ECG - EKG Impression: SINUS RHYTHM EKG Impression: LVH BY VOLTAGE Electronically Signed By: Nilda Lua 15-Oct-2017 08:16:18
[2017-10-15] MEDS ORDERED: HYDROmorphONE/DILAUDID 1 MG/ML INJ IVP ONE (00:07)
[2017-10-15] MEDS ORDERED: HYDROmorphONE/DILAUDID 2 MG/ML INJ ONE (00:08)
--- NOTE | 2017-10-15 00:34 | EDPHY ---
H & P Stated Complaint: EPIGASTRIC PAIN, NAUSEA/X 3 DAYS Time Seen by Provider: 10/14/17 23:03 HPI/ROS: Chief complaint: Epigastric pain This is a 57-year-old female who presents to the emergency department for evaluation of epigastric pain. She has had intermittent pain for number of weeks. However over the last day or so is significantly worsened. She describes a burning sensation. It does not radiate. She denies precipitating factors. She denies alleviating or aggravating factors. She denies other associated signs or symptoms including no fevers, no nausea, vomiting, no diarrhea or constipation, no blood in the stools, no urinary symptoms. Again she has had symptoms for number of weeks, ever since she was hospitalized for a salmonella gastroenteritis. She has seen a primary care doctor. She has been referred to Gastroenterology and has an appointment next week she believes. Review of systems: A 10 point review of systems was obtained and other than described above was negative - Personal History Current Tetanus Diphtheria and Acellular Pertussis (TDAP): No Tetanus Vaccine Date: 2012 - Medical/Surgical History Hx Asthma: No Hx Chronic Respiratory Disease: No Hx Diabetes: Yes Hx Cardiac Disease: Yes Hx Renal Disease: No Hx Cirrhosis: No Hx Alcoholism: No Hx HIV/AIDS: No Hx Splenectomy or Spleen Trauma: No Other PMH: dm type 2, htn. gallbladder out. ovarian cyst. Left leg fx. arthritis right knee with steriod injections,. hx of flu. - Social History Smoking Status: Former smoker - Physical Exam Exam: General Appearance: Alert, nontoxic. Eyes: Pupils equal and round no pallor or injection. ENT, Mouth: Mucous membranes moist. Respiratory: There are no retractions, lungs are clear to auscultation. Cardiovascular: Regular rate and rhythm. Gastrointestinal: Bowel sounds are normal. Abdomen is soft, there is epigastric tenderness, the rest of the abdomen is nontender, no guarding. Neurological: Alert and oriented x4. Strength and sensation intact and symmetrical. Skin: Warm and dry, no rashes. Musculoskeletal: Neck is supple non tender. Extremities are symmetrical, full range of motion. Psychiatric: Patient is oriented X 3, there is no agitation. Constitutional: Initial Vital Signs Temperature (C) 36.3 C 10/14/17 22:59 Heart Rate 63 10/14/17 22:59 Respiratory Rate 20 10/14/17 22:59 Blood Pressure 196/97 H 10/14/17 22:59 O2 Sat (%) 98 10/14/17 22:59 O2 Delivery Mode Room Air Allergies/Adverse Reactions: No Known Allergies Allergy (Verified 06/10/17 08:29) Home Medications: Medication Instructions Recorded Metoprolol Tartrate [Lopressor 50 50 mg PO BID 07/19/15 mg (*)] Albuterol [Proventil Inhaler HFA 1 - 2 puffs IH DAILY PRN 09/04/17 (*)] Insulin Lispro [Humalog] 0 units SQ TID 09/04/17 Gabapentin [Neurontin 100 MG (*)] 100 mg PO TID #21 cap 09/09/17 Losartan Potassium 10/14/17 Metformin HCl 10/14/17 Sucralfate [Carafate 1 GM (*)] 1 gm PO ACHS #15 tab 10/15/17 Medical Decision Making - Diagnostics Imaging: I viewed and interpreted images myself ED Course/Re-evaluation: Patient is discussed with my secondary supervising physician Dr. Nilda Lua. Patient presents to the emergency department for abdominal pain. She is nontoxic. Vital signs are stable. I performed serial abdominal exams in the emergency department including upon arrival, during her stay and prior to discharge and they have remained benign. Blood studies, EKG and abdominal x- ray are unremarkable. She has been symptomatically treated with near resolution of symptoms. She will be discharged home. She is asked to follow up with Gastroenterology which is the plan according to her primary care doctor for further evaluation and care. Home care is discussed. Return precautions are given. Patient voiced understanding and agreement with plan. Differential Diagnosis: Included but not limited to gastritis, peptic ulcer disease, gastroenteritis, reflux, pancreatitis, biliary tract disease, hepatitis, ACS - Data Points Laboratory Results: Laboratory Results 10/14/17 23:15 10/14/17 23:15 Medications Given: Discontinued Medications Al Hydroxide/Mg Hydroxide (Maalox Susp) 30 ml PO ONCE ONE Stop: 10/14/17 23:13 Last Admin: 10/14/17 23:48 Dose: 30 ml Fentanyl (Sublimaze) 100 mcg IVP EDNOW ONE Stop: 10/14/17 23:13 Last Admin: 10/14/17 23:27 Dose: 100 mcg Hydromorphone HCl (Dilaudid) 1 mg IVP EDNOW ONE Stop: 10/15/17 00:08 Last Admin: 10/15/17 00:10 Dose: 1 mg Hyoscyamine Sulfate (Levsin, Hyomax-Sl) 0.25 mg PO ONCE ONE Stop: 10/14/17 23:13 Last Admin: 10/14/17 23:48 Dose: 0.25 mg Sodium Chloride (Ns) 1,000 mls @ 0 mls/hr IV EDNOW ONE; Wide Open PRN Reason: Protocol Stop: 10/14/17 23:13 Last Admin: 10/14/17 23:33 Dose: 1,000 mls Lidocaine (Lidocaine 2% Viscous) 15 ml PO ONCE ONE Stop: 10/14/17 23:13 Last Admin: 10/14/17 23:48 Dose: 15 ml Ondansetron HCl (Zofran) 4 mg IVP EDNOW ONE Stop: 10/14/17 23:13 Last Admin: 10/14/17 23:27 Dose: 4 mg Pantoprazole Sodium (Protonix) 40 mg IVP EDNOW ONE Stop: 10/14/17 23:13 Last Admin: 10/14/17 23:28 Dose: 40 mg Departure - Departure Disposition: Home, Routine, Self-Care Clinical Impression: Epigastric abdominal pain Condition: Good Instructions: Epigastric Pain (ED) Additional Instructions: Follow-up with your primary care doctor in 1-2 days for recheck I recommend you take [id number] Zantac as directed for the next week You can also use the Carafate for pain control as directed If symptoms worsen or new symptoms develop return to the emergency room for recheck Referrals: William Starks MD [Primary Care Provider] - As per Instructions Prescriptions: Sucralfate [Carafate 1 GM (*)] 1 gm PO ACHS #15 tab
[2017-10-15 01:34] VITALS: BP 127/44
== END 2017-10-15 01:42 | disposition home or self-care (01) ==
DX: R10.13 Epigastric pain (principal); E86.9 Volume depletion, unspecified; E11.9 Type 2 diabetes mellitus without complications; I10 Essential (primary) hypertension; Z79.84 Long term (current) use of oral hypoglycemic drugs; Z87.891 Personal history of nicotine dependence
CPT/HCPCS: 96374; J1170; J2405; J3010

== ENCOUNTER 2018-02-20 15:58 | Observation (INO) | payer MEDICAID ==
[2018-02-20] MEDS ORDERED: ASPIRIN 81 MG CHEWABLE TAB ONE (16:13)
[2018-02-20] MEDS ORDERED: ASPIRIN 81 MG CHEWABLE TAB PO ONE (16:14)
[2018-02-20 16:32] LABS: PLATELET COUNT 212 10^3/uL (150-400)
[2018-02-20] MEDS ORDERED: HYOSCYAMINE SULFATE 0.125 MG TAB PO ONE (16:53)
[2018-02-20] MEDS ORDERED: LIDOCAINE 2% VISCOUS 15 ML UDCUP PO ONE (16:53)
[2018-02-20] MEDS ORDERED: MAG HYDROX/AL HYDROX/SIMETH 30 ML UDCUP PO ONE (16:53)
[2018-02-20] MEDS ORDERED: LORazepam 2 MG/ML INJ IVP ONE (17:09)
[2018-02-20] MEDS ORDERED: IOPAMIDOL (ISOVUE 370) 100 ML BTL IV ONE (17:13)
--- NOTE | 2018-02-20 18:12 | EDPHY ---
H & P Stated Complaint: CP all day Time Seen by Provider: 02/20/18 16:05 HPI/ROS: CHIEF COMPLAINT: Chest pain HISTORY OF PRESENT ILLNESS: 58-year-old female with diabetes and hypertension presents with chest pain. Onset of left-sided chest pain this morning upon wakening. The chest pain is moderate to severe and increases with deep inspiration and movement. Associated with nausea and anxiety. Did not eat anything today because of nausea. No alleviating factors. No prior similar symptoms. No known history of heart disease. was just admitted for acute coronary syndrome. REVIEW OF SYSTEMS: complete 10 point ROS reviewed and is negative except for the noted elements in the HPI - Personal History Tetanus Vaccine Date: 2012 - Medical/Surgical History Hx Asthma: No Hx Chronic Respiratory Disease: No Hx Diabetes: Yes Hx Cardiac Disease: Yes Hx Renal Disease: No Hx Cirrhosis: No Hx Alcoholism: No Hx HIV/AIDS: No Hx Splenectomy or Spleen Trauma: No Other PMH: dm type 2, htn. gallbladder out. ovarian cyst. Left leg fx. arthritis right knee with steriod injections,. hx of flu. - Social History Smoking Status: Former smoker Drug Use: None - Physical Exam Exam: General Appearance: Alert, pleasant, appears uncomfortable especially with movement Eyes: Pupils equal and round, no conjunctival pallor or injection ENT, Mouth: Mucous membranes moist Neck: Normal inspection Respiratory: Left anterior chest wall tenderness, Lungs are clear to auscultation Cardiovascular: Regular rate and rhythm Gastrointestinal: Abdomen is soft and nontender Neurological: A&O, nonfocal exam Skin: Warm and dry, no rash Extremities: Nontender, no pedal edema Psychiatric: Anxious Constitutional: Initial Vital Signs Temperature (C) 36.8 C 02/20/18 16:04 Heart Rate 19 L 02/20/18 16:04 Respiratory Rate 16 02/20/18 16:04 Blood Pressure 156/72 H 02/20/18 16:04 O2 Sat (%) 98 02/20/18 16:04 O2 Delivery Mode Nasal Cannula O2 (L/minute) 2 Allergies/Adverse Reactions: No Known Allergies Allergy (Verified 06/10/17 08:29) Home Medications: Medication Instructions Recorded Gabapentin [Neurontin 300 MG (*)] 300 mg PO TID 02/20/18 Insulin Regular, Human [Humulin R 40 unit SQ HS 02/20/18 U-500] Insulin Regular, Human [Humulin R 90 unit SC DAILY 02/20/18 U-500] Losartan Potassium 100 mg PO DAILY 02/20/18 Metoprolol Tartrate [Lopressor 50 50 mg PO BID 02/20/18 mg (*)] metFORMIN HCL [Glucophage 500 mg 1,000 mg PO BIDMEAL 02/20/18 (*)] Colchicine [Colchicine (*)] 0.6 mg PO DAILY #5 ea 02/21/18 Ibuprofen [Motrin (*)] 800 mg PO TID PRN #0 02/21/18 Medical Decision Making - Diagnostics EKG Interpretation: EKG interpreted by me reveals normal sinus rhythm, rate 81, low voltage, LVH. Interpretation: Abnormal EKG Imaging Results: Chest X-Ray 02/20/18 16:17 Impression: Borderline cardiomegaly. Chest/Thorax CTA 02/20/18 16:52 Impression: 1. No pulmonary embolic disease or pneumonia. 2. Coronary artery disease. Results called to Dr. Haas at 5:44 PM. Imaging: Discussed imaging studies w/ call center coordinator Radiologist, I viewed and interpreted images myself ED Course/Re-evaluation: This patient with multiple risk factors for CAD presents with chest pain. Stat EKG reveals no evidence of ischemia or dysrhythmia. Initial troponin is negative. GI cocktail given without relief. She is quite anxious so Ativan 0.5 mg IV given and she feels better after the Ativan. Continues to have moderate chest pain. CT pulmonary angiogram ordered to rule out pulmonary embolism versus dissection, given severe nature of pain. The CTA reveals coronary calcifications, no evidence of pulmonary embolism. Continues to have chest pain. Will admit for further cardiac evaluation. The hospitalist service was consulted for admission. Remained stable throughout her emergency department stay. Differential Diagnosis: Differential diagnosis includes though it is not limited to pneumonia, pneumothorax, pulmonary embolism, aortic dissection, pericarditis, acute coronary syndrome. - Data Points Laboratory Results: Laboratory Results 02/20/18 16:19 02/20/18 16:19 Medications Given: Discontinued Medications Al Hydroxide/Mg Hydroxide (Maalox Susp) 30 ml PO ONCE ONE Stop: 02/20/18 16:54 Last Admin: 02/20/18 17:02 Dose: 30 ml Aspirin (Aspirin) 324 mg PO EDNOW ONE Stop: 02/20/18 16:15 Last Admin: 02/20/18 16:16 Dose: 324 mg Colchicine (Colchicine) 0.6 mg PO DAILY MITUL Stop: 08/20/18 10:14 Last Admin: 02/21/18 10:43 Dose: 0.6 mg Gabapentin (Neurontin) 300 mg PO TID MITUL Stop: 08/19/18 21:59 Last Admin: 02/21/18 08:01 Dose: 300 mg Hyoscyamine Sulfate (Levsin, Hyomax-Sl) 0.25 mg PO ONCE ONE Stop: 02/20/18 16:54 Last Admin: 02/20/18 17:02 Dose: 0.25 mg Influenza Virus Vaccine Quadrival (Flulaval Quad [id number] (6mo+)) 0.5 ml IM .ONCE ONE Stop: 02/21/18 10:11 Last Admin: 02/21/18 10:50 Dose: 0.5 ml Ketorolac Tromethamine (Toradol) 15 mg IVP EDNOW ONE Stop: 02/20/18 18:17 Last Admin: 02/20/18 18:38 Dose: Not Given Ketorolac Tromethamine (Toradol) 30 mg IVP ONCE ONE Stop: 02/21/18 10:06 Last Admin: 02/21/18 10:44 Dose: 30 mg Lidocaine (Lidocaine 2% Viscous) 15 ml PO ONCE ONE Stop: 02/20/18 16:54 Last Admin: 02/20/18 17:02 Dose: 15 ml Lorazepam (Ativan Injection) 0.5 mg IVP EDNOW ONE Stop: 02/20/18 17:10 Last Admin: 02/20/18 17:31 Dose: 0.5 mg Losartan Potassium (Cozaar) 100 mg PO DAILY MITUL Stop: 08/20/18 08:59 Last Admin: 02/21/18 08:00 Dose: 100 mg Metformin HCl (Glucophage) 1,000 mg PO BIDMEAL MITUL Stop: 08/20/18 07:59 Last Admin: 02/21/18 08:02 Dose: Not Given Metoprolol Tartrate (Lopressor) 50 mg PO BID MITUL Stop: 08/19/18 20:59 Last Admin: 02/21/18 12:33 Dose: Not Given Miscellaneous Medication (Humulin R (U-500)) 40 units SC HS MITUL Stop: 08/19/18 20:59 Last Admin: 02/20/18 21:49 Dose: 40 units Miscellaneous Medication (Humulin R (U-500)) 90 units SC DAILY MITUL Stop: 08/20/18 08:59 Last Admin: 02/21/18 08:02 Dose: Not Given Pneumococcal Polyvalent Vaccine (Pneumovax 23) 0.5 ml IM .ONCE ONE Stop: 02/21/18 10:11 Last Admin: 02/21/18 10:46 Dose: 0.5 ml Point of Care Test Results: Chemistry 02/20/18 16:21 POC Troponin I 0.01 ng/mL ng/mL (0.00-0.08) Departure - Departure Disposition: [facility] Inpatient Acute Clinical Impression: Chest pain Qualifiers: Chest pain type: other chest pain Qualified Code(s): R07.89 - Other chest pain Condition: Good
[2018-02-20] MEDS ORDERED: KETOROLAC 15 MG/1 ML SDV IVP ONE (18:16)
[2018-02-20] MEDS ORDERED: ACETAMINOPHEN 325 MG TAB PO PRN (18:48)
[2018-02-20] MEDS ORDERED: ONDANSETRON 4 MG/2 ML VIAL IVP PRN (18:48)
[2018-02-20] MEDS ORDERED: ONDANSETRON DISINTEGRATING 4 MG TAB PO PRN (18:48)
--- NOTE | 2018-02-20 19:50 | GHP ---
DATE OF ADMISSION: 02/20/2018 The patient is a pleasant 58-year-old female with a history of diabetes, obesity, admission here for salmonella in August, as well as hypertension, who presents with chest pain. It is in the center of h er chest. It is worse with lying back on her back. It does not radiate to her arm or jaw. It is no t associated with exertion. Multiple lines of questioning revealed that the patient has exceedingly poor exertional tolerance, unable to go up a flight of stairs without stopping secondary to being win ded. She is also unable to walk flat for longer than about 50 feet, it sounds like. She has not had PND, orthopnea, or lower extremity edema. She denies heart failure symptoms. She is uncertain if she has had a previous evaluation for heart attack or for coronary disease. She does h ave a strong family history, with her father and brother, both having fatal heart attacks in their 50 s. REVIEW OF SYSTEMS: Complete 10-point review of systems conducted, negative except as noted in the HP I. PAST MEDICAL HISTORY: Type 2 diabetes, morbid obesity, hypertension, and DYSON. She had a cholecyste ctomy. An unreconciled list of medications is albuterol, gabapentin, insulin, losartan, metformin, metoprolo l, sucralfate. SOCIAL HISTORY: No tobacco, no alcohol. She had worked at [employer] until recently, when she stopped b ecause her had a heart attack. FAMILY HISTORY: As in the HPI. PHYSICAL EXAMINATION: VITAL SIGNS: Temp 36.3, blood pressure 155/72, pulse 70, breathing 18 times a minute, 93% on room air. GENERAL: No acute distress. HEENT: Sclerae anicteric. Oropharynx clear . Mucous membranes moist. NECK: Supple without lymphadenopathy, JVD. LUNGS: Clear to auscultatio n bilaterally. HEART: S1, S2. ABDOMEN: Soft, nontender, nondistended. LOWER EXTREMITIES: Withou t edema. Calves nontender. SKIN: Without rash. NEUROLOGIC: Nonfocal. Chest x-ray interpreted by me shows no acute cardiopulmonary disease. CTA of the chest shows no pulm onary embolism, coronary artery calcifications are noted. EKG interpreted by me shows sinus at 81 with normal axis and intervals and no ST or T-wave changes. I discussed the case with Dr. Corrie Haas. ASSESSMENT/PLAN: A 58-year-old female with chest pain. 1. Chest pain. This is somewhat noncardiac sounding, however, her risk factor profile is somewhat r emarkable with her family history, diabetes, hypertension. Her exertional tolerance is exceedingly p oor so I think a Lexiscan is her only choice for provocative testing and I have ordered that for the morning. We will rule her out and follow her on telemetry. 2. Poor exertional tolerance. I suspect this is secondary to her morbid obesity and deconditioning. She certainly seems to have risks for obstructive sleep apnea. I have ordered echocardiogram. 3. Diabetes. Check an A1c. 4. Hypertension. Continue her antihypertensives when reconciled. 5. Prophylaxis. Low molecular heparin indicated to start if in the hospital longer than 48 hours. DISPOSITION: Observation status. /[id number]/MODL
[2018-02-20] MEDS ORDERED: INSULIN REGULAR HUMAN 100 UNIT/ML UNIT SC SCH (21:00)
[2018-02-20] MEDS ORDERED: HUMULIN R SC SCH (21:00)
--- NOTE | 2018-02-20 21:01 | CPEKG ---
Test Reason : OPEN Blood Pressure : / mmHG Vent. Rate : 081 BPM Atrial Rate : 081 BPM P-R Int : 169 ms QRS Dur : 091 ms QT Int : 377 ms P-R-T Axes : 035 -15 023 degrees QTc Int : 438 ms Sinus rhythm Low voltage, precordial leads Left ventricular hypertrophy Confirmed by Mamie Haas ([id number]) on 02/20/2018 9:01:00 PM Referred By: Confirmed By:Mamie Haas
[2018-02-20] MEDS: METOPROLOL TARTRATE 50 MG TAB PO SCH (21:19)
[2018-02-20] MEDS: GABAPENTIN 300 MG CAP PO SCH (21:19)
[2018-02-21] MEDS ORDERED: metFORMIN HCL 500 MG TAB PO SCH (08:00)
[2018-02-21] MEDS: GABAPENTIN 300 MG CAP PO SCH (08:01)
[2018-02-21] MEDS ORDERED: LOSARTAN POTASSIUM 50 MG TAB PO SCH (09:00)
[2018-02-21] MEDS ORDERED: INSULIN REGULAR HUMAN 100 UNIT/ML UNIT SC SCH (09:00)
[2018-02-21] MEDS ORDERED: HUMULIN R SC SCH (09:00)
[2018-02-21] MEDS ORDERED: REGADENOSON 0.4 MG/5 ML SYR IVP ONE (09:41)
[2018-02-21] MEDS ORDERED: KETOROLAC 30 MG/1 ML SDV IVP ONE (10:05)
[2018-02-21] MEDS ORDERED: PNEUMOCOCCAL 0.5ML VACCINE VIAL IM ONE (10:10)
[2018-02-21] MEDS ORDERED: COLCHICINE 0.6 MG CAP/TAB PO SCH (10:15)
--- NOTE | 2018-02-21 10:21 | ECHO ---
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 Normal global systolic LV function. EF is 62 %. No obvious regional wall motion abnormalities but due to poor apical window cannot definitively rule out. Normal diastolic LV function. There are no significant valvular abnormalities. The patient had a previous study in March of 2015 that demonstrated similar findings. Measurements: Chambers Valvular Assessment AV/MV Valvular Assessment TV/PV Normal Normal Normal Name Value Range Name Value Range Name Value Range Ao Kristen (MM): 3.0 cm (2.2 cm-3.7 AV Vmax: 1.43 m/s (1 m/s-1.7 PV Vmax: 1.01 m/s (0.6 m/s-0.9 cm) m/s) m/s) IVSd (2D): 0.8 cm (0.6 cm-1.1 AV maxP mmHg ( - ) PV PGmax: 4 mmHg ( - ) cm) LVOT Vmax: 0.98 m/s (0.7 m/s-1.1 LVDd (2D): 4.0 cm (3.9 cm-5.3 m/s) cm) PAZ (Vmax): 1.9 cm2 ( - ) LVDs (2D): 2.7 cm (2.1 cm-4 MV E Vmax: 0.79 m/s ( - ) cm) MV A Vmax: 0.85 m/s ( - ) LVPWd (2D): 1.1 cm ( - ) MV E/A: 0.93 ( - ) LVOTd 1.9 cm 1.9 cm mm LVEF (2D): 62 (>=54 %) Continued Measurements: Chambers Valvular Assessment AV/MV Name Value Name Value Patient: NOAM CHAMPION Study Date: 02/21/2018 Page 1 of 2 08:42 AM LADs Lon.2 cm MV DecTime: 211 m/s LA Area: 19.4 cm2 MV E' Septal: 0.08 m/s LA Volume: 50 ml MV E/E' Septal: 10.40 LA Volume Index: 24.6 ml/m2 MV E/E' Lateral: 9.10 Additional Vessels Name Value Ao Ascendin.8 cm Findings: Left Ventricle: Normal size left ventricle. No LV hypertrophy. Normal global systolic LV function. EF is 62 %. No obvious regional wall motion abnormalities but due to poor apical window cannot definitively rule out. Normal diastolic LV function. Right Ventricle: Right ventricle is not well visualized. Left Atrium: The left atrium is normal in size. Right Atrium: Grossly normal RA size. Mitral Valve: The mitral valve is normal in appearance. There is no significant mitral valve regurgitation. No mitral stenosis is present. Aortic Valve: The aortic valve is tri-leaflet. There is no aortic valve regurgitation. No aortic valve stenosis is present. Tricuspid Valve: Tricuspid valve not well visualized. There is no significant tricuspid valve regurgitation. Pulmonary artery pressure is not obtained due to inadequate TR jet. Pulmonic Valve: Pulmonary valve not well visualized. Trivial pulmonic valve regurgitation. Aorta: Normal size aortic root measuring 3.0 cm. Normal size ascending aorta measuring 2.8 cm. IVC: The IVC is not well visualized. Pericardium: No pericardial effusion. There is pericardial fat. (No Signature Object) Patient: NOAM CHAMPION Study Date: 02/21/2018 Page 2 of 2 08:42 AM [id number]
[2018-02-21 11:20] VITALS: BP 128/40
[2018-02-21] MEDS: METOPROLOL TARTRATE 50 MG TAB PO SCH (12:33)
--- NOTE | 2018-02-21 14:23 | ASMTCMCOM ---
CM Note CM Note Notes: Patient admitted for Chest Pain - work-up in process. On last admission in August, patient d/c'd home with [facility] RN/PT. There are no therapies ordered at this time. I would anticipate patient would be able to d/c home independently but could warrant a visit from CM to inquire about [facility] again, PT, as it appears she is somewhat deconditioned CM will continue to follow this case. Date Signed: 02/21/2018 02:22 PM Electronically Signed By:Gi Reid RN
--- NOTE | 2018-02-21 14:25 | PDDCSUM ---
Discharge Summary Discharge Summary: DISCHARGE DIAGNOSES: * chest wall pain, likely pectoralis major injury due to lifting at work * no evidence of cardiac, pulmonary, thromboembolic issues * diabetes, hypertension, Crisostomo all stable at baseline PROCEDURES: CT scan chest with no evidence of pulmonary embolism HOSPITAL COURSE SUMMARY: This patient presented to the emergency room with a left-sided anterior chest pain. This is a fairly focal pain located along the left mid sternal border and also felt in a small area just superior and lateral to that on the anterior left chest wall. It was a sharp pain, clearly aggravated by various movements of the trunk and particularly by pushing down on anything with her shoulder either extended or abducted. There is also some discomfort with taking a deep breath. This pain started after the patient lifted a heavy patient in an awkward position at work. There is no cough, fever symptoms, dyspnea. On examination she has had normal vital signs here. She has had relaxed respirations, clear lungs and a normal Cardiac exam. There is severe tenderness to palpation and with active motion of her left shoulder against resistance in location and fashion strongly suggesting most likely pectoralis major injury less likely intercostal or coastal sternal junction injury. There is no evidence of congestive heart failure. There is no evidence of DVT. She has ruled out for myocardial infarction, has had no abnormalities of EKG or abnormalities on cardiac electronic device monitor. In the ER CT scan of the chest was done with no evidence of PE, pneumonia, or other significant abnormalities. No coronary calcifications noted. Also there and echocardiogram was done showing normal left ventricular function with no concerning abnormalities otherwise. The patient is felt to have musculoskeletal or injury in the chest wall. She is treated here with ibuprofen and colchicine along with ice pack to the affected area and is having significant improvement though still with some tenderness and soreness. It is felt that with proper rest of the injured parts along with icing and use of ibuprofen the patient will recover well. She is in stable condition for discharge PENDING TEST RESULTS: None MEDICATION CHANGES: To use her 800 mg ibuprofen tablets three times daily at this time for pain relief Colchicine added for couple of days as well for pain relief FOLLOW-UP PLAN: She has an appointment with her primary care physician in 3 days Greater than 35 minutes bedside and care coordination time today
== END 2018-02-21 16:04 | disposition home or self-care (01) ==
LOC: F2W 18:42
PROVIDERS: ADMIT Internal Medicine; ATTEND Internal Medicine
DX: R07.89 Other chest pain (principal); E11.9 Type 2 diabetes mellitus without complications; I10 Essential (primary) hypertension; Z79.4 Long term (current) use of insulin; Z23 Encounter for immunization; E66.01 Morbid (severe) obesity due to excess calories; K75.81 Nonalcoholic steatohepatitis (NASH)
CPT/HCPCS: 71046; 71275; 90471; 93005; 93306; 96372; 96374; 96375; 99285; G0378; 84484-PO; G0008; G0009; J1885; J2785; Q9967